=== PATIENT | female | born 1945 | race Caucasian/White ===

== ENCOUNTER 2017-06-17 09:18 | Outpatient (CLI) | payer OTHER, MEDICARE ==
--- NOTE | 2017-06-17 10:23 | ULT ---
HEPATIC ULTRASOUND: Indications: There is a history of prior portal vein thrombosis. The patient is complaining of epigas tric pain. FINDINGS: The liver is echogenic suggesting fatty infiltration or medial hepatic disease. Color doppler with sp ectral analysis performed on hepatic vessels. The portal veins, hepatic veins, and hepatic artery all show normal blood flow. The gallbladder appears unremarkable. No gallstones are seen. The common duct is normal caliber measu red at 5-6 mm. The right kidney is partially imaged and appears unremarkable. Spleen is small in size and appears unremarkable. Abdominal aorta and IVC not visualized. The pancreas is obscured. IMPRESSION: 1. Echogenic liver suggests fatty infiltration. 2. Hepatic vessels show normal flow as demonstrated with color doppler and spectral analysis. POS: SAAD
== END 2017-06-17 09:19 | disposition home or self-care (01) ==
LOC: ULT 09:18
PROVIDERS: ATTEND Internal Medicine Gastroenterology
DX: K31.84 Gastroparesis (principal); K21.9 Gastro-esophageal reflux disease without esophagitis; K76.89 Other specified diseases of liver; R10.13 Epigastric pain
CPT/HCPCS: 76705

== ENCOUNTER 2017-10-29 09:27 | Outpatient (CLI) | payer OTHER, MEDICARE | END 2017-10-29 09:28 | disposition home or self-care (01) | LOC: BICMAMMO 09:27 | PROVIDERS: ATTEND Internal Medicine | DX: R92.8 Other abnormal and inconclusive findings on diagnostic imaging of breast (principal); R92.1 Mammographic calcification found on diagnostic imaging of breast | CPT/HCPCS: 77066; G0279 ==

== ENCOUNTER 2018-11-11 09:04 | Outpatient (CLI) | payer OTHER, MEDICARE ==
--- NOTE | 2018-11-11 09:49 | MMO ---
Bilateral MAMMO Bilat Diag [facility]. CLINICAL HISTORY: Patient is 73 years old and is seen for diagnostic exam. The patient has no family history of breast cancer. The patient has a history of malignant (generic) in the right breast in 2014 and Skin cancer 2007. The patient has a history of right Lumpectomy in 2015 - malignant and right needle biopsy in 2015 - malignant. VIEWS: The views performed were: bilateral craniocaudal with tomosynthesis; bilateral mediolateral oblique with tomosynthesis; and bilateral mediolateral. FILMS COMPARED: The present examination has been compared to prior imaging studies performed at [facility] on 10/29/2017, and at [facility] on 07/21/2012, 10/24/2014, 10/25/2014, 10/27/2014, 11/13/2014, 10/29/2015, 04/30/2016 and 10/28/2016. MAMMOGRAM FINDINGS: There are scattered fibroglandular densities. Finding 1: There are stable benign appearing calcifications seen in both breasts. Finding 2: There is a stable post-surgical scar seen in the right breast. There are no suspicious masses, suspicious calcifications, or new areas of architectural distortion. IMPRESSION: THERE IS NO MAMMOGRAPHIC EVIDENCE OF MALIGNANCY. A ROUTINE FOLLOW-UP MAMMOGRAM IN 1 YEAR IS RECOMMENDED. THE RESULTS OF THIS EXAM WERE SENT TO THE PATIENT. ACR BI-RADS Category 2 - Benign finding MAMMOGRAPHY NOTE: 1. A negative mammogram report should not delay a biopsy if a dominant of clinically suspicious mass is present. 2. Approximately 10% to 15% of breast cancers are not detected by mammography. 3. Adenosis and dense breasts may obscure an underlying neoplasm.
== END 2018-11-11 09:05 | disposition home or self-care (01) ==
LOC: BICMAMMO 09:04
PROVIDERS: ATTEND Internal Medicine Hematology & Oncology
DX: Z08 Encounter for follow-up examination after completed treatment for malignant neoplasm (principal); Z85.3 Personal history of malignant neoplasm of breast
CPT/HCPCS: 77066; G0279